=== PATIENT | female | born 1980 | race Caucasian/White ===

== ENCOUNTER 2022-01-01 09:51 | Emergency (ER) | payer OTHER, SELFPAY ==
[2022-01-01 10:06] VITALS: BP 144/83; PULSE 70; RESP 16; TEMP 36.8; O2SAT 100
--- NOTE | 2022-01-01 10:28 | ED.GENADULT ---
HPI - General Adult General Chief complaint: Nausea/Vomiting/Diarrhea Stated complaint: vomitting, nausea, fever, body aches,fatitgue Source: patient Mode of arrival: ambulatory Limitations: no limitations History of Present Illness HPI narrative: 41-year-old female presents to urgent care with complaints of 9-day history of fatigue, body aches, chills, fevers up to 103, nausea, vomiting and headache. Patient reports that the nausea, vomiting and diarrhea have improved but the headache worsened through the night. Patient reports that symptoms did start after she ran a 10K patient reports that no one else in her home is ill at this time. Patient has been taking [id number] Aleve and Advil with minimal relief. Patient reports that she had a negative PCR COVID test completed 3 days ago. patient reports that she has a very minimal dry cough that she feels that is from postnasal drip. Patient denies sore throat, ear pain, shortness of breath, wheezing, chest pain or shortness of breath. Patient reports that she is urinating and the urine is clear in color -- Patient reports that she has urinated twice today. Onset (ago): day(s) (9) Relieving factors: none Exacerbating factors: none Associated symptoms: headaches and nausea/vomiting Treatments prior to arrival: NSAID Related Data Home Medications Medication Instructions Recorded Confirmed No Home Medications 01/01/22 01/01/22 Allergies Allergy/AdvReac Type Severity Reaction Status Date / Time HYDROCODONE BIT Allergy Mild vomiting Uncoded 01/01/22 11:27 Review of Systems Constitutional: Constitutional: Reports chills, Reports fatigue, Reports fever(s) and Denies weakness ENT: Denies vertigo and Denies dizziness Cardiovascular: Cardiovascular: Denies chest pain, Denies rapid heart rate and Denies radiating jaw, neck or arm pain Respiratory: Respiratory: Denies cough, Denies dyspnea and Denies wheezing Gastrointestinal: Gastrointestinal: Reports diarrhea, Reports nausea and Reports vomiting Genitourinary: Genitourinary: Denies flank pain Musculoskeletal: Musculoskeletal: Reports myalgias and Denies joint swelling Integumentary/Breasts: Skin/Breast: Denies rash Neurologic: Denies dizziness PMFSH Comments At time of signature, I agree with nursing past medical, surgical, social and family history. There is no relevant family history pertinent to the presenting complaint. Exam Const: General: healthy appearing and no acute distress Nutritional Appearance: well nourished Orientation/consciousness: patient oriented x3 Limitations: no limitations HENMT: Head: normal to inspection Ears: external ears normal General nose exam: Normal external nose present Mouth: Yes Normal oral and palatal mucosa present and Yes moist mucous membranes Neck: Neck: normal visual inspection Resp: Effort & Inspection: normal respiratory effort Auscultation: clear to auscultation bilaterally Cardio: Rate: regular rate Rhythm: regular rhythm Heart sounds: no murmurs GI: GI Palp: Yes Soft to palpation, No Tenderness to palpation present (GI), No Guarding due to palpation present (GI) and No Rigid due to palpation Auscultation: normal bowel sounds : General: Yes bladder normal to palpation Back/Spine/Pelvis: Back: no CVA tenderness Skin: General skin exam: normal color Rashes: no rashes Wounds: no wounds Neuro: General: patient oriented x3 Speech: normal speech Gait exam (Neuro): Normal gait present Extrem: General: normal to inspection Psych: Mental Status: mental status grossly normal Affect: normal affect Attitude: cooperative Course Course Level of Care: Express Care Visit Vital Signs Vital signs: Vital Signs Temperature 36.8 C 01/01/22 10:06 Pulse Rate 70 01/01/22 10:06 Respiratory Rate 16 01/01/22 10:06 Blood Pressure 144/83 H 01/01/22 10:06 Pulse Oximetry 100 01/01/22 10:06 Temperature 36.8 C 01/01/22 10:06 Pulse Rat
== END 2022-01-01 10:55 | disposition short-term general hospital (02) ==
PROVIDERS: Emergency Provider Nurse Practitioner Family
DX: R50.9 Fever, unspecified (principal); R51.9 Headache, unspecified; Z20.822 Contact with and (suspected) exposure to COVID-19
CPT/HCPCS: 81003; 87426; 87804; 99213; C9803; G0463

== ENCOUNTER 2022-01-01 11:14 | Emergency (ER) | payer OTHER, SELFPAY ==
[2022-01-01 11:23] VITALS: BP 149/83; PULSE 66; RESP 16; TEMP 36.6; O2SAT 100
--- NOTE | 2022-01-01 12:24 | ED.GENADULT ---
HPI - General Adult General Chief complaint: Unspecified Stated complaint: fever, fatiuge Time Seen by Provider: 01/01/22 11:39 Source: patient and old records reviewed Mode of arrival: ambulatory Limitations: no limitations History of Present Illness HPI narrative: Patient is a 41 y/o female who presents to the ED with multiple complaints. Patient reports she ran a 10K 9 days ago, which is not abnormal for her. She began feeling unwell the next day. She reports having fever, chills, fatigue, myalgias, nausea, vomiting, diarrhea, headache, post nasal drip. She states she drank plenty of fluids during the race, but has not been able to keep down much food or fluid over the last week when she was vomiting. She went to an urgent care today and was referred to the ED for further evaluation. Denies any abdominal pain, chest pain, difficulty breathing, vision changes, rectal bleeding, cough, sore throat, congestion. She has tested negative for COVID 3 times over the last week and tested negative for influenza at the today. Related Data Allergies Allergy/AdvReac Type Severity Reaction Status Date / Time HYDROCODONE BIT Allergy Mild vomiting Uncoded 01/01/22 11:27 Review of Systems Review of Systems: CONSTITUTIONAL: Reports fatigue, fever, chills, or sweats. EYES: Denies visual changes. ENT: Reports post nasal drip. Denies rhinorrhea, congestion, sore throat. CARDIOVASCULAR: Denies chest pain. RESPIRATORY: Denies cough or dyspnea. GASTROINTESTINAL: Reports nausea, vomiting, or diarrhea. Denies abdominal pain. MUSCULOSKELETAL: Reports myalgias. NEUROLOGIC: Reports OLIVA, generalized weakness. All systems reviewed & are unremarkable except as noted in HPI and below PMFSH Past Medical History Medical History (Updated 01/01/22 @ 15:27 by Yessenia Harris PA-C) No pertinent past medical history Surgical History Surgical History (Updated 01/01/22 @ 12:27 by Yessenia Harris PA-C) No pertinent past surgical history Social History Social History (Updated 01/01/22 @ 12:27 by Yessenia Harris PA-C) Smoking status: Never smoker Exam Narrative: GENERAL: Well appearing, well-nourished, non-toxic, in no acute distress. HEAD: Normocephalic, atraumatic. EYES: PERRL/EOMI, conjunctivae clear bilaterally. THROAT: Pharynx clear, no exudate. MMs moist. No erythema or tonsillar hypertrophy. NECK: Supple. No adenopathy, no masses. RESPIRATORY: Airway patent, respirations nonlabored. Clear to auscultation bilaterally, no rales, rhonchi, wheezing. CARDIOVASCULAR: Regular rate and rhythm without murmurs, rubs, or gallops. Peripheral pulses 2+ and equal bilaterally. ABDOMINAL: Soft, nontender, nondistended, no hepatosplenomegaly. Normoactive BS. MUSCULOSKELETAL: Moves all extremities. Strength/ROM intact without gross deformities or TTP. No edema. SKIN: Warm, dry, normal color. No rashes. NEURO: A&O X3. Speech clear. Cranial nerves II-XII grossly intact. Steady gait. No ataxic movements. PSYCHIATRIC: Appropriate mood and affect. Normal interaction. Course Vital Signs Vital signs: Vital Signs Temperature 97.8 F 01/01/22 11:23 Pulse Rate 66 01/01/22 11:23 Respiratory Rate 16 01/01/22 11:23 Blood Pressure 149/83 H 01/01/22 11:23 Pulse Oximetry 100 01/01/22 11:23 Temperature 97.8 F 01/01/22 11:23 Pulse Rate 66 01/01/22 11:23 Respiratory Rate 16 01/01/22 11:23 Blood Pressure 149/83 H 01/01/22 11:23 Pulse Oximetry 100 01/01/22 11:23 Medical Decision Making MDM Narrative Medical decision making narrative: Patient presented to ED with multiple viral type symptoms X 9 days. Previously tested negative for COVID and influenza. Vital signs stable upon arrival. Patient well-appearing, nontoxic. No acute distress. Laboratory evaluation essentially unremarkable. No leukocytosis or anemia. No electrolyte abnormality. Good kidney function, creatinine 1, BUN 10. No previous records to compare
[2022-01-01 12:26] LABS: Appearance Urine Clear (Clear); Bilirubin Urine Negative (Negative); Color Urine Yellow (Yellow); Glucose Urine UA Negative (Negative); Ketones Urine Negative (Negative); Leukocyte Esterase Ur Negative LEU/UL (Negative); Nitrate Urine Negative (Negative); Protein Urine Negative (Negative); Specific Grav Ur <= 1.005 (1.001-1.035); Urobilinogen Urine 0.2 mg/dL (<2.0)
[2022-01-01 12:31] LABS: Add Urine Microscopic? YES; Blood Urine Trace-Intact (Negative)
[2022-01-01] MEDS: SODIUM CHLORIDE 0.9% IV 1,000 ML 999 ML IV CONT ×2 (12:35→13:57)
[2022-01-01 12:44] LABS: Basophils Percent Auto 0.6 % (0.2-1.2); Eosinophils Absolute Auto 0.1 K/mm3 (0-0.3); Eosinophils Percent Auto 1.6 % (0-4.4); Hematocrit 38.4 % (37.0-47.0); Immature Granulocyte Absolute 0.11 K/mm3 (0.00-0.031); Immature Granulocyte Percent A 1.8 % (0-0.5); Lymphocytes Absolute Auto 1.19 K/mm3 (0.9-3.2); Lymphocytes Percent Auto 19.2 % (18.3-44.2); Mean Corpuscular HGB Conc 33.9 g/dl (32-36); Mean Corpuscular Volume 85.5 fl (80-100); Monocytes Absolute Auto 0.3 K/mm3 (0.1-0.6); Neutrophils Absolute Auto 4.5 K/mm3 (1.3-6.7); Neutrophils Percent Auto 71.8 % (45.5-73.1); Platelet Count Result 262 k/mm3 (150-375); Red Blood Count 4.49 M/mm3 (4.2-5.4); Red Cell Distribution Width 12.2 % (11.5-14.5); White Blood Count 6.2 K/mm3 (4.5-10.0)
[2022-01-01 12:54] LABS: RBC Urine 0-2 /hpf (0-2); Squamous Epithelial Cell Urine Few /hpf (Few); WBC Urine 0-3 /hpf
[2022-01-01 12:55] LABS: Alanine Aminotransferase 41 U/L (6-35); Albumin Level 4.3 g/dL (3.5-5.1); Alkaline Phosphatase 106 U/L (38-126); Anion Gap 10 mmol/L (8-16); Aspartate Amino Transferase 38 U/L (14-36); Bilirubin,Total 0.3 mg/dL (0.2-1.3); Blood Urea Nitrogen 10 mg/dL (7-17); Calcium 9.5 mg/dL (8.4-10.2); Carbon Dioxide 27 mmol/L (22-30); Chloride 101 mmol/L (98-107); Creatine Kinase 159 U/L (30-135); Estimated CRCL calculation 71 ml/min; Estimated Glomerular Filt Rate > 60; Glucose 96 mg/dL (65-110); Lipase 102 U/L (23-300); Potassium 3.9 mmol/L (3.4-5.0); Sodium 138 mmol/L (137-145)
[2022-01-01 13:03] LABS: Atypical Lymphocytes Present; Platelet Estimate Adequate (Adequate)
[2022-01-01] MEDS: KETOROLAC 30 MG/ML VIAL (*BKC) IV PUSH (13:55)
[2022-01-01] MEDS: METOCLOPRAMIDE HCL INJ 10 MG/2 ML VIAL IV PUSH (14:02)
== END 2022-01-01 15:30 | disposition home or self-care (01) ==
PROVIDERS: Physician Assistant; Emergency Provider Emergency Medicine
DX: B34.9 Viral infection, unspecified (principal); R51.9 Headache, unspecified; R11.2 Nausea with vomiting, unspecified
CPT/HCPCS: 36415; 80053; 81001; 82550; 83690; 85025; 96361; 96365; 96375; 99284; J0131; J1885; J2765; J7030

== ENCOUNTER 2022-06-06 13:58 | Emergency (ER) | payer OTHER, SELFPAY ==
[2022-06-06 14:11] VITALS: BP 141/82; PULSE 73; RESP 16; TEMP 36.7; O2SAT 100
--- NOTE | 2022-06-06 14:11 | ED.SKABFB ---
HPI - Skin/Abscess/Foreign Bdy General Chief complaint: Skin/Abscess/Foreign Body Stated complaint: CYST Time Seen by Provider: 06/06/22 14:11 Source: patient and RN notes reviewed History of Present Illness HPI narrative: Patient is a 41-year-old female who presents to the Urgent Care with complaints of a skin sore in the hairline of the right side of her head. Patient states that it has been there for some time and seemed to become infected recently. Patient states that got large and painful this morning and she ?got a volcano of pus out of the area?. Patient denies any fevers. No other acute complaints. No acute distress noted. Patient aware of the plan of care. Some parts of this dictation were generated by voice recognition software and may contain typographical and/or grammatical inaccuracies. Related Data Allergies Allergy/AdvReac Type Severity Reaction Status Date / Time HYDROCODONE BIT Allergy Mild vomiting Uncoded 06/06/22 14:18 Review of Systems Review of Systems: CONSTITUTIONAL: Denies fever, chills, or sweats. EYES: Denies visual changes, redness, or discharge. ENT: Denies rhinorrhea, congestion, sore throat, or otalgia. CARDIOVASCULAR: Denies chest pain, palpitations, or edema. RESPIRATORY: Denies cough or dyspnea. GASTROINTESTINAL: Denies abdominal pain, nausea, vomiting, or diarrhea. GENITOURINARY: Denies dysuria or hematuria. SKIN: Reports of an abscess on the head MUSCULOSKELETAL: Denies back pain, joint pain, or myalgia. NEUROLOGIC: Denies headache, numbness, or weakness. All other systems reviewed are negative, except as documented in HPI. PMFSH Past Medical History Medical History (Updated 06/06/22 @ 14:22 by PITA Barger) No pertinent past medical history Surgical History Surgical History (Updated 01/01/22 @ 12:27 by Yessenia Harris PA-C) No pertinent past surgical history Social History Social History (Updated 01/01/22 @ 12:27 by Yessenia Harris PA-C) Smoking status: Never smoker Comments At the time of my signature, I reviewed and agree with the nursing past medical, surgical, social, and family history. There is no relevant family history pertinent to the patient complaint. Exam Narrative: GENERAL: This is a well-nourished, well-developed patient, in no apparent distress. HEAD: normocephalic, atraumatic. EYES: PERRL. Sclera clear/white. Vision is grossly intact. EARS: External ears normal NOSE: External nose normal with no obvious nasal discharge, nares without redness, no rhinorrhea. THROAT: Mucous membranes moist NECK: Neck supple SKIN: 2 cm erythemic folliculitis noted to the right temporal region the scalp. Warm, intact with no suspicious lesions or rash, good texture and turgor. NEURO: awake, alert, and oriented to person, place and time. There were no obvious focal neurologic abnormalities. EXTREMITIES: No clubbing, cyanosis, or edema. Course Course Level of Care: Express Care Visit Vital Signs Vital signs: Vital Signs Temperature 98.1 F 06/06/22 14:11 Pulse Rate 73 06/06/22 14:11 Respiratory Rate 16 06/06/22 14:11 Blood Pressure 141/82 H 06/06/22 14:11 Pulse Oximetry 100 06/06/22 14:11 Temperature 98.1 F 06/06/22 14:11 Pulse Rate 73 06/06/22 14:11 Respiratory Rate 16 06/06/22 14:11 Blood Pressure 141/82 H 06/06/22 14:11 Pulse Oximetry 100 06/06/22 14:11 Reviewed- Patient is informed that they may have pre-hypertension or hypertension based on a blood pressure reading in the department. I recommend the patient call the primary care provider listed on their discharge instructions or a physician of their choice this week to arrange follow-up for further evaluation of possible pre-hypertension or hypertension. MDM - Skin/Abscess/Foreign Bdy MDM Narrative Medical decision making narrative: Advised patient that she may continue to wash her hair as normal. Try not to scrape over the area. Do not pick or try
== END 2022-06-06 14:26 | disposition home or self-care (01) ==
PROVIDERS: Emergency Provider Nurse Practitioner Family
DX: L73.9 Follicular disorder, unspecified (principal)
CPT/HCPCS: 99213; G0463

== ENCOUNTER 2024-07-04 09:42 | Outpatient (CLI) | payer OTHER, SELFPAY ==
--- NOTE | ~2024-07-04 | MR_ITS ---
MRI of the left knee Clinical history: Pain Technique: Coronal proton density and proton density-weighted images, sagittal proton-density and T2 fat-sat images, and axial proton-density fat-saturated images were acquired. Findings: There is probable high-grade, complete tear at the proximal ACL. Posterior cruciate ligamen t is intact. Medial collateral ligament and the lateral collateral ligament complex are intact. Popli teus tendon is intact. There is probable oblique flap tear of the posterior horn/body of the medial meniscus. No lateral men iscal tear seen. 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 There is bone contusion at the posterolateral tibial plateau . Extensor mechanism is intact. Minimal joint effusion. No Elam's cyst. Impression: High-grade, probable complete tear at the proximal ACL. Mild bone contusion at the posterolateral tibial plateau. Oblique flap tear of the posterior horn/body of medial meniscus. Minimal joint effusion. Reviewed, dictated and finalized at [facility]. Impression: High-grade, probable complete tear at the proximal ACL. Mild bone contusion at the posterolateral tibial plateau. Oblique flap tear of the posterior horn/body of medial meniscus. Minimal joint effusion.
== END 2024-07-04 09:43 | disposition home or self-care (01) ==
PROVIDERS: Visit Provider Family Medicine Sports Medicine
DX: S83.242A Other tear of medial meniscus, current injury, left knee, initial encounter (principal); X58.XXXA Exposure to other specified factors, initial encounter
CPT/HCPCS: 73721